=== PATIENT | female | born 1990 | race Hispanic/Latino ===

== ENCOUNTER 2017-11-23 19:10 | Emergency (ER) | payer OTHER ==
[~2017-11-23 19:10] MED LIST: MACROBID 100 M100 MG PO
--- NOTE | 2017-11-23 20:44 | ED DYSPNEA/ASTHMA COMPLAINT ---
History of Present Illness General Chief Complaint: Dyspnea (COPD, CHF, Other) Stated Complaint: SOB SPO 98 Source: patient Exam Limitations: no limitations Vital Signs & Intake/Output Vital Signs & Intake/Output Vital Signs Date Time Temp Pulse Resp B/P B/P Pulse O2 O2 Flow FiO2 Mean Ox Delivery Rate 11/23 2306 97.2 70 14 112/60 100 Room Air 11/23 2305 Room Air 11/23 2116 97.6 66 20 103/57 100 Room Air 11/23 1941 98.1 76 22 132/86 96 Room Air Allergies Coded Allergies: No Known Allergies (06/22/17) Reconcile Medications No Known Home Medications Triage Note: PER PT CONGESTION AND HEADPAIN X 1 MONTH WENT TO WALKIN THURSDAY GIVEN ANTIBIOTICS AND INHALER ACTUALLY FEELING WORSE. APPEARS PALE BUT HAS HX OF ANEMIA LMP LAST WEEK 11/16/17 Triage Nurses Notes Reviewed? yes : No Patient currently breastfeeds: No HPI: Patient presents for evaluation for "sick for a month". Patient states that on Thursday she was evaluated in a walk-in center and was placed on an antibiotic steroids and pro-air. She states that she then started having chest pain dyspnea headache and dizziness. She denies any associated rashes, vomiting, diarrhea, dysuria, abdominal pain or fever. She states she is beginning to feel a sore throat. She denies any recent travel or known ill contacts. Symptoms are described as more or less constant and moderate to severe in intensity. Nothing seems to make her feel better. Past History Travel History Traveled to [place] past 21 day No Medical History Any Pertinent Medical History? see below for history Neurological: NONE EENT: NONE Cardiovascular: NONE Respiratory: asthma Gastrointestinal: NONE Hepatic: NONE Renal: NONE Musculoskeletal: NONE Psychiatric: NONE Endocrine: NONE Blood Disorders: LOW IRON Cancer(s): NONE Surgical History Surgical History: hernia repair-umbilical Psychosocial History What is your primary language Niuean Tobacco Use: Never used Family History Hx Contributory? No Review of Systems Review of Systems Constitutional: Reports: see HPI. EENTM: Reports: see HPI. Respiratory: Reports: no symptoms. Cardiovascular: Reports: see HPI. GI: Reports: no symptoms. Genitourinary: Reports: no symptoms. Musculoskeletal: Reports: no symptoms. Skin: Reports: no symptoms. Neurological/Psychological: Reports: no symptoms. Hematologic/Endocrine: Reports: no symptoms. Immunologic/Allergic: Reports: no symptoms. All Other Systems: Reviewed and Negative Physical Exam Physical Exam Respiratory: SEE BELOW Comments: Gen.: Well-nourished, well-developed, no acute respiratory distress. Appears tired. Head: Normocephalic, atraumatic. Eyes: Normal inspection bilaterally Ears: Normal inspection bilaterally, tympanic membranes and canals normal bilaterally Nose: Normal inspection Throat/mouth : Moist mucosa , no oropharyngeal erythema or soft tissue swelling Neck: Supple, full range of motion, no goiter Heart: Regular rate and rhythm, no murmurs rubs or gallops Lungs: Clear to auscultation bilaterally with normal air entry Chest: Nontender Back: Normal range of motion Abdomen: Soft, nontender, nondistended, normal bowel sounds Extremities: Normal range of motion grossly, equal radial pulses, no cyanosis clubbing or edema Neurologic: Cranial nerves grossly intact, speech is clear Skin: warm and dry Psychiatric: Calm, cooperative, no apparent delusions or hallucinations Lymphatic: No cervical or supraclavicular lymphadenopathy Core Measures ACS in differential dx? No CVA/TIA Diagnosis No Sepsis Present: No Sepsis Focused Exam Completed? No Progress Differential Diagnosis: MONONUCLEOSIS, PNEUMONIA, VIRAL SYNDROME, SINUSITIS, PHARYNGITIS Plan of Care: Orders Procedure Date/time Status Telemetry/Mash Filter Cloth Changer 11/23 2043 Active TROPONIN LEVEL 11/23 2043 Complete MONOSPOT TEST 11/23 2043 Complete MAGNESIUM 11/23 2043 Complete CBC WITHOUT DIFFERENTIAL 11/23 2043 Complete BASIC METABOLIC PANEL 11/23 2043 Complete EKG 11/23 2043 Active Laboratory Tests 11/23/172118: Anion Gap 10, Estimated GFR > 60, BUN/Creatinine Ratio 16.3, Glucose 87, Calcium 9.5, Magnesium 1.8, Troponin I < 0.01, CBC w Diff NO MAN DIFF REQ, RBC 3.61 L, MCV 93.8, MCH 31.0, RDW 13.1, MPV 8.0, Gran % 49.3, Lymphocytes % 41.2, Monocytes % 6.9, Eosinophils % 2.0, Basophils % 0.6, Absolute Granulocytes 3.7, Absolute Lymphocytes 3.1, Absolute Monocytes 0.5, Absolute Eosinophils 0.2, Absolute Basophils 0, PUBS MCHC 33.1, Infectious Bond Titer NEGATIVE Diagnostic Imaging: Discussed w/RAD: Radiology Read. CXR Impression: PATIENT: BARRERA SEGURA PRESENT AGE: 27 PATIENT ACCOUNT NO: [id number] : 89 LOCATION: [facility] ORDERING PHYSICIAN: Fausto Shepard MD SERVICE DATE: 11/23/17 EXAM TYPE: RAD - XRY-CHEST XRAY, TWO VIEWS EXAMINATION: XR CHEST CLINICAL INFORMATION: Dyspnea COMPARISON: None TECHNIQUE: 2 views of the chest were obtained. FINDINGS: The cardiomediastinal silhouette and pulmonary vascularity are normal. The lungs are clear. No pleural effusions. No pneumothorax. The visualized bones are within normal limits. IMPRESSION: No acute cardiopulmonary findings. DICTATED BY: Zelda Washington MD DATE/TIME DICTATED:11/23/172199 WASTEWATER TECHNICIAN:PHAN DATE/TIME TRANSCRIBED:11/23/172199 CONFIDENTIAL, DO NOT COPY WITHOUT APPROPRIATE AUTHORIZATION. <Electronically signed in Other Vendor System> SIGNED BY: Zelda Washington MD 11/23/172204 Initial ED EKG: NSR, rate (66), no ST T wave changes Comments: 11/23/2017 10:50:06 PM I have updated BARRERA and her father on test results. She is feeling somewhat better after IV fluids. I feel she is suffering from a viral syndrome. Plan symptomatic care and follow-up as needed. Departure Departure Disposition: HOME OR SELF CARE Condition: Stable Clinical Impression Primary Impression: Viral syndrome Referrals: Yael Olivas MD (PCP/Family) Additional Instructions: Ibuprofen 600 mg every 6 hours as needed for fever chills muscle aches sore throat or other pain. Maintained a good fluid intake. Continue your current medications as prescribed at the walk-in center. Follow-up with your primary care physician if not improving by or Thursday. Return if any concerns or sudden worsening. Please note that there might be incidental findings in your evaluation that are unrelated to the current emergency department visit. Please notify your primary care doctor about this emergency department visit in order to obtain and review all of the testing performed so that these incidental findings can be monitored as needed. If you had an x-ray performed, please understand that some fractures may not be seen on the initial set of x-rays. If your symptoms persist you might need a repeat set of x-rays to check for such a fracture. If you had a laceration evaluated, please understand that foreign bodies such as glass or wood may not be visible to the naked eye or on plain x-rays. If the wound becomes red, swollen, increasingly more painful or if there is any drainage from the wound, please have it reevaluated by a physician for the possibility of a retained foreign body. If you're unable to follow up as outlined in the discharge instructions please return to the emergency department. Thank you for choosing the [facility] Emergency Department for your care. It was a pleasure to serve you today. Fausto Shepard M.D. [facility] Departure Forms: Customer Survey General Discharge Information Prescriptions: Current Visit Scripts No Known Home Medications Critical Care Note Critical Care Note Critical Care Time: non-applicable
[2017-11-23 21:32] LABS: ABSOLUTE BASOPHIL COUNT 0 /CUMM (0.0-0.2); ABSOLUTE EOSINOPHIL COUNT 0.2 /CUMM (0.0-0.7); ABSOLUTE GRANULOCYTE CT 3.7 /CUMM (1.4-6.5); ABSOLUTE LYMPH COUNT 3.1 /CUMM (1.2-3.4); ABSOLUTE MONOCYTE COUNT 0.5 /CUMM (0.10-0.60); BASOPHIL % 0.6 % (0.0-2.0); GRANULOCYTE % 49.3 % (42.2-75.2); HEMATOCRIT 33.9 % (37-47); MEAN CORPUSCULAR HGB CONC 33.1 G/DL (33.0-37.0); MEAN CORPUSCULAR VOLUME 93.8 FL (81.0-99.0); PLATELET COUNT 244 /CUMM (130-400); RBC DISTRIBUTION WIDTH 13.1 % (11.5-14.5); RED BLOOD CELL CT 3.61 /CUMM (4.20-5.40); WHITE BLOOD CELL COUNT 7.4 /CUMM (4.8-10.8)
--- NOTE | 2017-11-23 22:05 | RADIOLOGY REPORT ---
EXAMINATION: XR CHEST CLINICAL INFORMATION: Dyspnea COMPARISON: None TECHNIQUE: 2 views of the chest were obtained. FINDINGS: The cardiomediastinal silhouette and pulmonary vascularity are normal. The lungs are clear. No pleural effusions. No pneumothorax. The visualized bones are within normal limits. IMPRESSION: No acute cardiopulmonary findings.
[2017-11-23 23:07] VITALS: BP 112/60
== END 2017-11-23 23:07 ==
LOC: ERH 19:10
PROVIDERS: Emergency Medicine
DX: B34.9 Viral infection, unspecified (principal); R07.9 Chest pain, unspecified
CPT/HCPCS: 71046; 93005; 93010; 96374; J1885

== ENCOUNTER 2018-01-18 18:47 | Emergency (ER) | payer OTHER ==
[2018-01-18 20:08] LABS: ABSOLUTE BASOPHIL COUNT 0 /CUMM (0.0-0.2); ABSOLUTE EOSINOPHIL COUNT 0.1 /CUMM (0.0-0.7); ABSOLUTE GRANULOCYTE CT 4.1 /CUMM (1.4-6.5); ABSOLUTE LYMPH COUNT 3.7 /CUMM (1.2-3.4); ABSOLUTE MONOCYTE COUNT 0.7 /CUMM (0.10-0.60); BASOPHIL % 0.4 % (0.0-2.0); GRANULOCYTE % 47.7 % (42.2-75.2); HEMATOCRIT 33.5 % (37-47); MEAN CORPUSCULAR HGB 31.8 PG (27.0-31.0); MEAN CORPUSCULAR HGB CONC 34.1 G/DL (33.0-37.0); MEAN CORPUSCULAR VOLUME 93.2 FL (81.0-99.0); MEAN PLATELET VOLUME 8.5 FL (7.4-10.4); PLATELET COUNT 223 /CUMM (130-400); RBC DISTRIBUTION WIDTH 12.9 % (11.5-14.5); WHITE BLOOD CELL COUNT 8.6 /CUMM (4.8-10.8)
--- NOTE | 2018-01-18 20:56 | RADIOLOGY REPORT ---
EXAMINATION: XR CHEST CLINICAL INFORMATION: Chest pain. COMPARISON: None TECHNIQUE: Chest radiograph 11/23/2017. FINDINGS: Lungs are well-expanded. No focal consolidative disease, pleural effusion, or pneumothorax. The cardiac silhouette and upper mediastinal contours are normal. No acute osseous finding. IMPRESSION: Unremarkable chest radiograph. No consolidative disease or effusion.
--- NOTE | 2018-01-18 21:18 | ED CARDIAC/CP/PALPITATIONS ---
History of Present Illness General Chief Complaint: Chest Pain Stated Complaint: SIB WALK IN, CP Source: patient Exam Limitations: no limitations Vital Signs & Intake/Output Vital Signs & Intake/Output Vital Signs Date Time Temp Pulse Resp B/P B/P Pulse O2 O2 Flow FiO2 Mean Ox Delivery Rate 01/18 2207 98.0 71 16 119/66 100 Room Air 01/18 1910 97.0 73 18 139/86 99 Room Air Allergies Coded Allergies: No Known Allergies (06/22/17) Triage Note: 27F SIB URGENT CARE WITH UPPER CHEST WALL PAIN, INTERMITTENT X4 DAYS AND WAKES HER FROM HER SLEEP. DENIES RECENT STRENUOUS ACTIVITY RECENTLY. REPORTS HX ASTHMA DOES NOT FEEL WHEEZY. TOOK MOTRIN AND ALBUTEROL WITHOUT RELIEF. FEELS DIZZY/LIGHTHEADED WITH HEADACHE. -N/V/D Triage Nurses Notes Reviewed? yes Onset: Gradual Duration: day(s): (4) Timing: no prior history Quality/Severity: moderate Location: central Radiation: no radiation Activities at Onset: none Modifying Factors: Worsens With: movement, palpation. Nitro Today/Relief: no nitro taken today Aspirin Today: no aspirin today : No Patient currently breastfeeds: No HPI: Patient is a 27-year-old female with past medical history OF ASTHMA presenting to the emergency department chief complaints centralized chest pain as pressure in nature that's been intermittent for the past 4 days. Patient was a pain lasts about an hour and then resolves on its own. Nothing seems to make it better, pushing on her chest makes it worse. Patient does not that she has intermittently associated palpitations with the pressure. She has not been taking anything [id number] or home to help with symptoms. Patient denies family history of any cardiac or lung issues. She does report a history of asthma, no relief with inhaler. She has not been coughing or congested. No fevers or chills. Denies any abdominal pain. No change in bowel or bladder function. She reports that she been eating and drinking well. (Marco Antonio PHILLIPS,Mary) Reconcile Medications Indomethacin 50 MG CAPSULE 1 CAP PO TID PRN PAIN with food (Alonzo LY,Nicolas Warren) Past History Travel History Traveled to [place] past 21 day No Medical History Any Pertinent Medical History? see below for history Neurological: NONE EENT: NONE Cardiovascular: NONE Respiratory: asthma Gastrointestinal: NONE Hepatic: NONE Renal: NONE Musculoskeletal: NONE Psychiatric: NONE Endocrine: NONE Blood Disorders: LOW IRON Cancer(s): NONE Surgical History Surgical History: hernia repair-umbilical Psychosocial History What is your primary language Macedonian Tobacco Use: Never used Illicit Drug Use: marijuana Family History Hx Contributory? No (Mary Bustamante) Review of Systems Review of Systems Constitutional: Reports: no symptoms. Comments Review of systems: See HPI, All other systems negative. Constitutional, no chills fever or weight loss HEENT: No visual changes no sore throat no congestion Cardiovascular: No orthopnea or ankle swelling Skin, no jaundice no rashes Respiratory: No dyspnea cough sputum or hemoptysis GI: No nausea no vomiting : No dysuria No hematuria Muscle skeletal: no back pain, no neck pain, Neurologic: No numbness no confusion Psych: No stress anxiety or depression,. Heme/endocrine: No bruising no bleeding no polyuria or polydipsia Immunology: No splenectomy or history of AIDS (Mary Bustamante) Physical Exam Physical Exam General Appearance: well developed/nourished, no apparent distress, alert, awake , comfortable Cardiovascular: regular rate/rhythm Comments: Well-developed well-nourished person in no acute distress HEENT: Pupils equally round and reactive to light and accommodation. Nose is atraumatic. External auditory canal and Tympanic membranes clear. Pharynx normal. No swelling or edema. Neck: Normal inspection Back: Nontender, no CVA tenderness. Cardiovascular: Regular rate and rhythms no murmurs rubs or gallops, normal JVP Respiratory: Chest is diffusely tender to palpation. No respiratory distress.breath sounds clear to auscultation bilaterally Abdomen: Soft, nontender nondistended, no appreciable organomegaly. Normal bowel sounds. No ascites, no rebound or guarding. Extremity: No edema, no calf tenderness to palpation, normal and equal pulses. Neuro: Alert oriented x3 Skin: No appreciable rash on exposed skin, skin is warm and dry. Psych: Mood and affect is normal, memory and judgment is normal. Core Measures ACS in differential dx? Yes CVA/TIA Diagnosis No Sepsis Present: No Sepsis Focused Exam Completed? No (Mary Bustamante) Progress Differential Diagnosis: hypovolemia, myocarditis, pericarditis, pneumonia, pneumothorax, PSVT, pulmonary embolism Plan of Care: Orders Procedure Date/time Status Add-on Test (ER Only) 01/18 2147 Active TROPONIN LEVEL 01/18 1910 Complete HUMAN BETA HCG SCREEN 01/18 1910 Complete D-DIMER 01/18 1910 Complete COMPREHENSIVE METABOLIC PANEL 01/18 1910 Complete CBC WITHOUT DIFFERENTIAL 01/18 1910 Complete EKG 01/18 1910 Active Laboratory Tests 01/18/181923: Anion Gap 11, Estimated GFR > 60, BUN/Creatinine Ratio 15.7, Glucose 98, Calcium 9.6, Total Bilirubin 0.2, AST 14, ALT 23, Alkaline Phosphatase 66, Troponin I < 0.01, Total Protein 7.5, Albumin 4.5, Globulin 3.0, Albumin/Globulin Ratio 1.5, Total Beta HCG NEGATIVE, D-Dimer High Sensitivty < 200, CBC w Diff NO MAN DIFF REQ, RBC 3.60 L, MCV 93.2, MCH 31.8 H, MCHC 34.1, RDW 12.9, MPV 8.5, Gran % 47.7, Lymphocytes % 43.3, Monocytes % 7.6, Eosinophils % 1.0, Basophils % 0.4, Absolute Granulocytes 4.1, Absolute Lymphocytes 3.7 H, Absolute Monocytes 0.7 H, Absolute Eosinophils 0.1, Absolute Basophils 0 Diagnostic Imaging: Viewed by Me: Radiology Read. Discussed w/RAD: Radiology Read. CXR Impression: no acute abnormality, no infiltrates, normal size heart, normal mediastinum Initial ED EKG: NSR (69 BPM) Comments: Negative. D-dimer negative. Troponin negative. Pain is reproducible on exam. Patient has no risk factors and no family history of any heart or lung issues. Symptoms have been present for the past 4 days. Negative troponin. Dimer is negative. Patient will follow up with cardiology. She may need Holter monitor. Patient will be started on anti-inflammatory. PERC (Mary Bustamante) Departure Departure Time of Disposition: 2151 Disposition: HOME OR SELF CARE Condition: Stable Clinical Impression Primary Impression: Chest pain Qualifiers: Chest pain type: unspecified Qualified Code: R07.9 - Chest pain, unspecified Referrals: Deisy LY,Yael (PCP/Family) Surekha Jones MD Additional Instructions: Follow-up with your primary care physician as well as cardiology for further evaluation. He may need to wear a Holter monitor. Take indomethacin as prescribed help with any pain and inflammation. Departure Forms: Customer Survey General Discharge Information Prescriptions: Current Visit Scripts Indomethacin 1 CAP PO TID PRN PAIN #15 CAP with food (Mary Bustamante) PA/SOLAR PHOTOVOLTAIC SYSTEMS ENGINEER Co-Sign Statement Statement: ED Attending supervision documentation- [] I saw and evaluated the patient. I have also reviewed all the pertinent lab results and diagnostic results. I agree with the findings and the plan of care as documented in the PA's/SOLAR PHOTOVOLTAIC SYSTEMS ENGINEER's documentation. [X] I have reviewed the ED Record and agree with the PA's/SOLAR PHOTOVOLTAIC SYSTEMS ENGINEER's documentation. [] Additions or exceptions (if any) to the PAs/SOLAR PHOTOVOLTAIC SYSTEMS ENGINEER's note and plan are summarized below: [] (Alonzo LY,Nicolas Warren) Critical Care Note Critical Care Note Critical Care Time: non-applicable (Mary Bustamante)
[2018-01-18] MEDS ORDERED: INDOMETHACIN50 M1 PO (21:53)
[2018-01-18 22:07] VITALS: BP 119/66
== END 2018-01-18 22:10 ==
LOC: ERH 18:47
PROVIDERS: Physician Assistant Medical
DX: R07.89 Other chest pain (principal)
CPT/HCPCS: 71046; 93005; 93010; 96372; J1885